=== PATIENT | male | born 1970 ===

== ENCOUNTER 2022-09-24 11:16 | Inpatient (IN) | payer OTHER, SELFPAY ==
[2022-09-22 15:17] VITALS: BMI 31.0
[2022-09-24] VITALS (7 sets, daily range): BP systolic 101–136; BP diastolic 70–97; PULSE 80–89; RESP 14–18; TEMP 36.3–36.7; O2SAT 92–97; BMI 31.0
[2022-09-24] MEDS: LACTATED RINGERS 1,000 ML 84 ML IV (12:04)
--- NOTE | 2022-09-24 12:37 | PM.PREOP ---
Pre-operative Note COVID-19 COVID-19 status: Negative Result date/Date tested (Pos, Neg/Pending): 09/23/22 Criteria for continued procedure: Expected advancement of disease process, Possibility delay results in more complex future surgery or treatment, Increased loss of function, Continuing or worsening of significant or severe pain, Deterioration of the patient's condition or overall health and Delay expected to result in less-positive ultimate med/surg outcome Interval Note History & Physical reviewed/Exam performed by Physician: Yes Changes to H&P: No
[2022-09-24] MEDS: CLINDAMYCIN 900 MG/50 ML PIGGYBACK 50 MG IV (13:00)
[2022-09-24] MEDS: BUPIVACAINE 0.5% W/ EPI (PF) 30 ML VIAL INJ (13:20)
--- NOTE | 2022-09-24 13:21 | SUR.OPER ---
Prone on spine table, head in foam head support, padded chest and pelvic supports, gel pad at knees, lower legs supported by pillows; nipples, genitalia and toes free of pressure, arms secured on foam padded arm boards at <90 degrees abduction. Tape over blanket at thigh secured to table. Pt positioned per direction and supervision of Dr Phan.
--- NOTE | 2022-09-24 13:37 | DI.RAD.S_ITS ---
PROCEDURE: XR LUMBAR SPINE 2-3V INDICATIONS: L4-5 LAMINECTOMY TECHNIQUE: Fluoroscopic images were obtained during an operative procedure and submitted for interpretation following the completion of the procedure. COMPARISON: [facility] Outside Film, MR, MR LUMBAR SPINE WITHOUT CONTRAST, 05/07/2022, 14:03. FINDINGS: These fluoroscopic images were performed for intraoperative localization. On these images, postoperative clips can be seen overlying the posterior aspect of the L4-L5 disc level. Please correlate with intraoperative findings. IMPRESSION: Normal intraoperative examination. Dictated by: Steven Nichols M.D. on 09/24/2022 at 15:02 Approved by: [email or web address] Nichols M.D. on 09/24/2022 at 15:03
--- NOTE | 2022-09-24 13:56 | P.OP_ITS ---
Operative Date/Time/Diagnoses Date of procedure: 09/24/22 Time of procedure: 13:00 Pre-op diagnosis: 1. L4-5 spinal stenosis with neurogenic claudication 2. L4-5 radiculopathy Post-op diagnosis: same Procedure & Clinicians Procedure: 1. L4-5 bilateral laminectomy with partial facetecomy 2. Utilization of microsurgical technique and operating microscope Same procedure as scheduled: Yes Indications: Patient has been having chronic back pain and worsening lumbar radiculopathy and symptoms of neurogenic claudication. Patient failed multiple conservative management with worsening pain weakness and numbness in his lower extremity. Patient has been having difficulty performing activity of daily living. After discussing risks benefits of treatment options, patient elected proceed with surgery. Surgeon: Pretty Phan Utility System Operator: Blanca Ambriz Click Yes if Unassisted: No Anesthesia Type: General Operative Notes Closure Type: primary Specimen(s): none sent Estimated Blood Loss (mL): 5 Blood products transfused: none Procedure in detail: Patient was seen in the preoperative area. Risks and benefits of the surgery was discussed with the patient. Informed consent was obtained from the patient and placed in the chart. Surgical site was marked. Patient was taken to the op erative room. General anesthesia was administered. Prophylactic antibiotic was given to the patient less than 30 min before the incision was made. Patient was placed into a prone position on the Lucas table. Patient's back was then prepped and draped in the sterile fashion. Time-out was performed at this time. Using AP and lateral C-arm imaging the interval between L4-5 was identified and marked on patient's back. A 1 inch incision 1 in from midline was made on the left side. The fascia was incised in line with skin incision. Globus MARS retractors was placed inside the incision and docked onto the L4 lamina. Using microsurgical technique and operating microscope, a L4-5 laminectomy was performed using a Kerrison rongeur. Liagamentum flavum was resected at the site of the laminotomy. Either side of the dura was exposed. Bilateral partial facetcomies was performed to further decompress the lateral recess. Patient was also found to have significant amount of epidural lipomatosis which further contributed to his central stenosis and his symptoms. The lipomas were carefully removed from the epidural space using a Kerrison rongeur and pituitary. After the laminectomy was completed, the area medial lateral superior and inferior to the area of the laminectomy was inspected and explored using a micro curette. No other impinging structure was identified. The wound was then irrigated with sterile normal saline. 40 mg Depo-Medrol was placed into the epidural space. The deep fascia was closed with 1-0 Vicryl. The subcutaneous tissue was closed with 2-0 Vicryl. The skin was closed with skin shannon. Patient tolerated the procedure well. There were no complications. Patient was transferred recovery room in stable condition. Complications: none Post-operative Condition: stable Disposition: PACU Plan for aftercare: Discharge to home
== END 2022-09-24 15:08 | disposition home or self-care (01) | DRG 321 ==
PROVIDERS: Admitting Provider Orthopaedic Surgery Orthopaedic Surgery of the Spine; Referring Provider Orthopaedic Surgery Orthopaedic Surgery of the Spine; Visit Provider Orthopaedic Surgery Orthopaedic Surgery of the Spine
PROC: 01NB0ZZ Release Lumbar Nerve, Open Approach (ICD-10-PCS; principal; 2022-09-24 12:00)
DX: M48.062 Spinal stenosis, lumbar region with neurogenic claudication (principal); M54.16 Radiculopathy, lumbar region; E88.2 Lipomatosis, not elsewhere classified; Z20.822 Contact with and (suspected) exposure to COVID-19
CPT/HCPCS: 72100; 76000; 82962; J1100; J2250; J2405; J2704; J2920; J3010